=== PATIENT | female | born 1995 | race Caucasian/White ===

== ENCOUNTER → 2017-08-31 12:58 | Outpatient (CLI) | payer OTHER, SELFPAY ==
[2017-08-31 17:34] LABS: Chlamydia Trachomatis by PCR Negative (Negative); Neisserai gonorrhoeae by PCR Negative (Negative); Probe Check PASS; Sample Adequacy Control PASS; Specimen Processing Control PASS
[2017-09-08 10:48] LABS: HPV Reflexed? NOT INDICATED
== END ==
PROVIDERS: Family Provider Pediatrics; PCP Pediatrics; Visit Provider Obstetrics & Gynecology
DX: Z12.4 Encounter for screening for malignant neoplasm of cervix (principal); Z11.3 Encounter for screening for infections with a predominantly sexual mode of transmission
CPT/HCPCS: 87491; 87591; 88175; G0145

== ENCOUNTER → 2017-10-19 11:20 | Outpatient (CLI) | payer SELFPAY ==
[2017-10-19 12:08] LABS: Absolute Neutrophil Count 5.4 X10^3/uL (2.0-7.7); Basophil# 0.01 X10^3/uL; Basophil% 0.1 % (0-1); Eosinophil# 0.14 X10^3/uL; Eosinophils% 1.6 % (0-5); Hematocrit 36.2 % (37-47); Hemoglobin 12.3 g/dl (12.0-15.0); Lymphocyte % 31.5 % (19-41); Mean Corpuscular Volume 88.3 fL (81-99); Mean Platelet Vol. 10.1 fl (6.2-12.0); Monocyte# 0.58 X10^3/uL; Monocyte% 6.5 % (0-10); Neutrophil # 5.35 X10^3/uL (2.7-7.7); Neutrophil % 60.3 % (47-70); Platelet Count 212 K/mm3 (150-450); RBC Distribution Width CV 13.5 % (11.6-14.6); RBC Distribution Width SD 43.6 fl (35.1-43.9); White Blood Count 8.9 K/mm3 (4.4-11.0)
[2017-10-19 12:10] LABS: POSITIVE COUNT NO; POSITIVE DIFFERENTIAL NO; POSITIVE MORPHOLOGY NO
[2017-10-19 12:30] LABS: Color, Urine Yellow (Yellow); Glucose, Dipstick Normal (Normal); Ketone-Dipstick Negative (Negative); Leukocyte Esterase-Dipstick 500 /ul (Negative); Nitrite-Dipstick Negative (Negative); Occult Blood-Urine Negative /ul (Negative); Protein-Dipstick Negative (Negative); Urine Bilirubin Dipstick Negative (Negative); Urine Clarity Sl. Cloudy (Clear); Urine Urobilinogen Normal (Normal)
[2017-10-19 13:20] LABS: HIV - WCH Non-Reactive (Nonreactive); Rubella IgG 19.8 IU/mL
[2017-10-20 08:12] LABS: HEPATITIS B SURFACE AG Negative (Negative); Hep C Antibodies 0.1 s/co ratio (0.0-0.9)
[2017-10-21 02:41] LABS: Prenatal RPR NONREACTIVE (NONREACTIVE)
== END ==
PROVIDERS: Visit Provider Obstetrics & Gynecology
DX: Z34.82 Encounter for supervision of other normal pregnancy, second trimester (principal)
CPT/HCPCS: 36415; 81002; 84443; 85025; 86703; 86762; 86803; 87340

== ENCOUNTER → 2018-01-24 09:29 | Outpatient (CLI) | payer SELFPAY ==
[2018-01-24 11:05] LABS: Hematocrit 34.2 % (37-47); Hemoglobin 11.6 g/dl (12.0-15.0); Mean Corp Hgb Conc 33.9 g/gl (32-36); Mean Corpuscular Hgb 31.4 pg (27.0-32.0); Mean Corpuscular Volume 92.4 fL (81-99); Mean Platelet Vol. 10.1 fl (6.2-12.0); Platelet Count 204 K/mm3 (150-450); RBC Distribution Width CV 13.8 % (11.6-14.6); RBC Distribution Width SD 46.1 fl (35.1-43.9); White Blood Count 11.3 K/mm3 (4.4-11.0)
[2018-01-24 11:07] LABS: Scan Indicated on CBC? Y/N NO
[2018-01-24 11:14] LABS: Glucose Challenge Gest 1H 50g 117 mg/dL (70-140)
== END ==
PROVIDERS: Visit Provider Obstetrics & Gynecology
DX: Z34.82 Encounter for supervision of other normal pregnancy, second trimester (principal)
CPT/HCPCS: 82950; 85027

== ENCOUNTER → 2018-03-21 16:03 | Outpatient (CLI) | payer OTHER, SELFPAY ==
[2014-10-28 12:46] VITALS: BMI 27.8
--- OUTSIDE RECORDS SUMMARY | 2018-05-07 23:21 | XMS RPT_ITS ---
:1995 Author Organization OHIP Support Name Relationship Address Phone ROSEY DEBORAH Unavailable [address] + [place] [address] UE Unavailable Unavailable Unavailable ALISON KAUR Unavailable [address] + [place] [address] DILLSBOROSARANE Unavailable [address] + [place] [address] UE Unavailable Unavailable Unavailable ALISON KAUR Unavailable [address] + [place] [address] DILLSBORO DEBORAH Unavailable [address] + [place] [address] UE Unavailable Unavailable Unavailable ALISON KAUR Unavailable [address] + [place] [address] [facility] Unavailable [address] + [place] [address] HERNANDO CURRIE Unavailable [address] + [place] [address] DILLSBORODEBORAH Unavailable [address] + [place] [address] [facility] Unavailable [address] + [place] [address] HERNANDO CURRIE Unavailable [address] + [place] [address] DILLSBORO DEBORAH Unavailable [address] + [place] [address] [facility] Unavailable . +. ., . . HERNANDO CURRIE Unavailable [address] + [place] [address] DILLSBORODEBORAH Unavailable [address] + [place] [address] Care Team Providers Name Role Phone Echo Garcia Attending Unavailable Radha, Echo Admitting Unavailable Ramonkos, Echo Attending Unavailable Radha, Echo Referring Unavailable Ramonkos, Echo Attending Unavailable Mana Santizo Primary Care Unavailable Benekos, Echo Admitting Unavailable Benekos, Echo Attending Unavailable Primay Care Physicia, No Primary Care Unavailable Ignacios, Echo Attending Unavailable Ignacios, Echo Attending Unavailable PROBLEMS PROBLEMS DATE TYPE CONDITION / CODE ATTENDING STATUS SOURCE 03/22/2018 Unknown Z36.85 - Encounter Echo Garcia Active [place] [facility] screening for Hospital Streptococcus B / Repository Z36.85(ICD-10) 01/24/2018 Unknown Z34.82 - Encounter Echo Garcia Active [place] for supervision of Community other normal Hospital , second Repository trimester / Z34.82(ICD-10) 08/31/2017 Unknown Z12.4 - Encounter Echo Garcia Active [place] for screening for Community malignant neoplasm Hospital of cervix / Repository Z12.4(ICD-10) 08/31/2017 Unknown Z11.3 - Encounter Echo Garcia Active [place] for screening for Community infections with a Hospital predominantly Repository sexual mode of transmission / Z11.3(ICD-10) PROCEDURES PROCEDURES No Procedure Records FoundRESULTS RESULTS OPERATIVE REPORT Observed: 04/24/2018 Status: F Source: PALMER 2:49 PM [facility] REPOSITORY [facility] Medical Records Department [address] [place] [address] Operative Report 04/24/18 1444 MR#: [id number] Acct: [id number] Name: FANY KAUR Mckenzie Rep #: [id number] : 1995 22 From: Echo Garcia MD PCP: Status: ADM IN Location: [id number] Vaginal Delivery Maternal Presentation: Spontaneous Rupture of Membranes 40 4/7 wk EGA presents with SROM Amniotic Membrane Rupture Type: Spontaneous at home Amniotic Fluid Description: Clear Final ALISSON: 04/19/18 Gestational age: 40 Weeks and 5 Days Date of Procedure: 04/24/18 Pre-Operative Diagnosis: 40 4/7 wk SROM Post-Operative Diagnosis: 40 4/7 wk SROM Surgery/ Procedure Performed: Spontaneous Vaginal Delivery Type of Anesthesia: None - nitrous used. Description of Procedure: of a rodriges viable male over intact perineum Head delivered LUKAS. Nuchal cord x one reduced at delivery Shoulders delivered easily. Infant to maternal abdomen after OP and nares bulb suctioned and stimulated. Cord clamped x two and cut. PP exam: 2nd deg perineal and posterior vaginal laceration repaired under 1% lidocaine local to hemostatic and intact Placenta delivered by spont expulsion and expression. 3V normal appearing, intact with trailing membranes. EBL 350 cc Pt and tolerated delivery well To recovery, stable condition Ray Ghazala counts correct x two. Presentation: Vertex, LUKAS Placental Delivery Description: Spontaneous, Expressed Placenta Disposition: [facility] Cord Vessel Description: 3 Vessels Cord Entanglement: Around neck x 1, loose Estimated Blood Loss: 350 Infant A gender: Male (1 minute): 9 (5 minute): 9 Episiotomy Description: None Laceration: Midline, Perineal Extension/lac, Vaginal Extension/lac, 2nd degree Medications given after delivery: IV Pitocin Complications: None 04/24/18 1449 <Electronically signed by Echo Garcia MD> Date Echo Garcia MD CC: Echo Garcia MD Signed DISCHARGE INSTRUCTION Observed: 04/24/2018 Status: F Source: FLOVILLA 2:43 PM [facility] REPOSITORY [facility] Medical Records Department [address] [place] [address] Instructions for Home/Discharge Instructions 04/24/18 1442 MR#: [id number] Acct: [id number] Name: FANY KAUR Rep #: [id number] : 1995 22 From: Echo Garcia MD PCP: Status: ADM IN Discharge Diet: No Restrictions Discharge Activity: May Shower, May Take a Tub Bath May resume sexual activity in: 4-6 weeks Additional Activity Instructions:: Nothing in the vagina for 4-6 weeks. You may return to work/school in 6 weeks. Additional Instructions: If you experience any of the following, contact your healthcare provider. * Bleeding that soaks a pad every hour for 2 hours * Fever 100.4 or higher * Unrelieved abdominal pain * Problems urinating (including inability to urinate or burning while urinating). * Visual changes * Severe headache * Flu-like symptoms * Pain or redness in one of both of your breasts * Pain, warmth, tenderness or swelling in your legs, especially the calf area * Frequent nausea and vomiting * Symptoms of depression or anxiety If you experience any of the following, call 911 or go to the nearest Emergency Room. * Chest pain * Problems breathing * Seizure activity * Partial or complete paralysis of a body part, slurred speech, weakness or drooping of the face, or a sudden inability to walk or hold your balance Allergies/Adverse Reactions: Allergies No Known Allergies Allergy (Verified 04/23/18 22:49) Medications to take at Discharge Vits [Prenatabs FA] 1 tablet PO DAILY 04/23/18 Please Follow Up With: Echo Garcia MD - [phone] When: Call to make an appointment with your doctor in 6 weeks. Test Results: Test results from this visit will be discussed in further detail at your follow-up appointment, if applicable. Proposed Discharge Date: 04/26/18 04/24/18 1443 <Electronically signed by Echo Garcia MD> Date Echo Garcia MD CC: Signed CBC-COMPLETE BLOOD CNT Collected: 04/23/2018 Status: F Source: PALMER NO DIFF 11:35 PM [facility] REPOSITORY TYPE CODE TESTS RESULT OUT OF RANGE REFERENCE UNITS LAB L100.1000 4.4-11.0 K/mm3 Normal WBC 11.0 LAB L100.1200 4.2-5.4 M/mm3 Low RBC 3.86 LAB L100.1300 12.0-15.0 g/dl Low HGB 11.1 LAB L100.1400 37-47 % Low HCT 33.9 LAB L100.1500 81-99 fL Normal MCV 87.8 LAB L100.1600 27.0-32.0 pg Normal MCH 28.8 LAB L100.1700 32-36 g/gl Normal MCHC 32.7 LAB L100.1810 11.6-14.6 % Normal RDW CV 14.1 LAB L100.1820 35.1-43.9 fl Normal RDW SD 43.5 LAB L100.1900 150-450 K/mm3 Normal PLT 201 LAB L100.2000 6.2-12.0 fl Normal MPV 10.6 Performed By: #### L100.0500 #### [facility] [address] [place], [address] TYPE AND SCREEN Collected: 04/23/2018 Status: F Source: PALMER 11:35 PM [facility] REPOSITORY Order Comment: Reason for Type AND Screen/Red Cells: TYPE CODE TESTS RESULT OUT OF RANGE REFERENCE UNITS LAB B10.0800 A Normal BLOOD TYPE GEL POSITIVE LAB B100.4000 Normal Antibody NEGATIVE Screen Performed By: #### B101.7450 #### [facility] [address] [place], [address] (ROM) RUPTURE OF Collected: 04/23/2018 Status: F Source: PALMER MEMBRANES 10:23 PM [facility] REPOSITORY TYPE CODE TESTS RESULT OUT OF REFERENCE UNITS RANGE LAB L205.1310 Negative High ROM POSITIVE Result Comment: Amniotic fluid present indicates rupture of Membranes. [facility] 04/23[facility]18 2309 Alyson Pratt. REPORT READ BACK BY SAME . Performed By: #### L205.1000 #### [facility] [address] [place], [address] Observed: 03/21/2018 Status: F Source: PALMER CULTURE, GROUP B 2:45 PM [facility] REPOSITORY Comments: VAGINAL/RECTAL GRZEGORZ Culture Group B Beta Streptococcus is not isolated. Performed By: #### M100.1800 #### [facility] [address] [place], [address] CBC-COMPLETE BLOOD CNT Collected: 01/24/2018 Status: F Source: PALMER NO DIFF 8:45 AM [facility] REPOSITORY TYPE CODE TESTS RESULT OUT OF RANGE REFERENCE UNITS LAB L100.1000 4.4-11.0 K/mm3 High WBC 11.3 LAB L100.1200 4.2-5.4 M/mm3 Low RBC 3.70 LAB L100.1300 12.0-15.0 g/dl Low HGB 11.6 LAB L100.1400 37-47 % Low HCT 34.2 LAB L100.1500 81-99 fL Normal MCV 92.4 LAB L100.1600 27.0-32.0 pg Normal MCH 31.4 LAB L100.1700 32-36 g/gl Normal MCHC 33.9 LAB L100.1810 11.6-14.6 % Normal RDW CV 13.8 LAB L100.1820 35.1-43.9 fl High RDW SD 46.1 LAB L100.1900 150-450 K/mm3 Normal PLT 204 LAB L100.2000 6.2-12.0 fl Normal MPV 10.1 Performed By: #### L100.0500 #### [facility] [address] [place], [address] GLUCOSE CHALLENGE GEST Collected: 01/24/2018 Status: F Source: PALMER 1H 50G 8:45 AM [facility] REPOSITORY TYPE CODE TESTS RESULT OUT OF RANGE REFERENCE UNITS LAB L501.0250 70-140 mg/dL Normal GLU GEST 117 50g 1H Performed By: #### L501.0250 #### [facility] [address] [place], [address] CBC W/DIFF, AUTOMATED Collected: 10/19/2017 Status: F Source: PALMER 11:24 AM [facility] REPOSITORY TYPE CODE TESTS RESULT OUT OF RANGE REFERENCE UNITS LAB L100.1000 4.4-11.0 K/mm3 Normal WBC 8.9 LAB L100.1200 4.2-5.4 M/mm3 Low RBC 4.10 LAB L100.1300 12.0-15.0 g/dl Normal HGB 12.3 LAB L100.1400 37-47 % Low HCT 36.2 LAB L100.1500 81-99 fL Normal MCV 88.3 LAB L100.1600 27.0-32.0 pg Normal MCH 30.0 LAB L100.1700 32-36 g/gl Normal MCHC 34.0 LAB L100.1810 11.6-14.6 % Normal RDW CV 13.5 LAB L100.1820 35.1-43.9 fl Normal RDW SD 43.6 LAB L100.1900 150-450 K/mm3 Normal PLT 212 LAB L100.2000 6.2-12.0 fl Normal MPV 10.1 LAB L100.2100 47-70 % Normal NEUT% 60.3 LAB L100.2200 19-41 % Normal LY% 31.5 LAB L100.2300 0-10 % Normal MONO% 6.5 LAB L100.2400 0-5 % Normal EO% 1.6 LAB L100.2500 0-1 % Normal BASO% 0.1 LAB L100.2550 0.0-0.9 % Normal IM GRAN % 0.000 Result Comment: IG% - Immature Granulocytes (promyelocytes, myelocytes and metamyelocytes) > 1% indicates that a LEFT SHIFT is Present. LAB L100.2620 2.0-7.7 X10 3/uL Normal Absolute Neut 5.4 LAB L100.2720 0.83-4.51 X10 3/ul Normal Absolute Lymph 2.80 Performed By: #### L100.0100 #### [facility] [address] [place], [address] URINALYSIS, ROUTINE Collected: 10/19/2017 Status: F Source: FLOVILLA (DIPSTICK) 11:24 AM [facility] REPOSITORY Order Comment: How was Urine Obtained? Urine, Random TYPE CODE TESTS RESULT OUT OF RANGE REFERENCE UNITS LAB L400.3000 Yellow COLOR Normal Yellow LAB L400.3050 Clear Normal CLARITY Sl. Cloudy LAB L400.3200 Normal mg/dl Normal GLUCOSE, UR Normal LAB L400.3300 Negative mg/dL Normal BILIRUBIN URINE Negative LAB L400.3400 Negative mg/dl Normal KETONE UR Negative LAB L400.3465 1.002-1.030 Normal SP.GR. DIPSTX 1.010 LAB L400.3550 5.0 - 8.0 pH UR Normal 8.0 LAB L400.3600 Negative mg/dl PROT Normal DIPSTX Negative LAB L400.3700 Normal mg/dl Normal UROBILI Normal LAB L400.3750 Negative Normal NITRITE UR Negative LAB L400.3780 Negative /ul Normal OCCULT BLOOD-UR Negative LAB L400.3800 Negative /ul High LEUK ESTERASE 500 Performed By: #### L400.2010 #### [facility] [address] [place], [address] THYROID STIM HORMONE Collected: 10/19/2017 Status: F Source: PALMER (TSH) 11:24 AM [facility] REPOSITORY TYPE CODE TESTS RESULT OUT OF RANGE REFERENCE UNITS LAB L501.9520 0.358-3.74 uIU/mL Normal TSH 1.10 Performed By: #### L501.9520 #### [facility] [address] [place], [address] T AND S-NO Collected: 10/19/2017 Status: F Source: PALMER CHARGE W/PNP 11:24 AM [facility] REPOSITORY Order Comment: Reason for Type AND Screen/Red Cells: Surgery? N TYPE CODE TESTS RESULT OUT OF RANGE REFERENCE UNITS LAB B10.0800 A Normal BLOOD POSITIVE TYPE GEL LAB B100.4050 Normal Ab SCREEN NEGATIVE GEL Performed By: #### B100.7550 #### [facility] [place], [address] RUBELLA IGG Collected: 10/19/2017 Status: F Source: PALMER 11:24 AM [facility] REPOSITORY TYPE CODE TESTS RESULT OUT OF RANGE REFERENCE UNITS LAB L509.4000 IU/mL Normal Rubella IgG 19.8 Result Comment: Antibody results Interpretation of Immune Status < 5 IU/ml Presumed Non-immune 5 - < 10 IU/ml Equivocal > or = 10 IU/ml Presumed Immune Performed By: #### L509.4000, L3890.6005 #### [facility] [address] [place], [address] HIV - WCH Collected: 10/19/2017 Status: F Source: PALMER 11:24 AM [facility] REPOSITORY TYPE CODE TESTS RESULT OUT OF RANGE REFERENCE UNITS LAB L3890.6005 Nonreactive Normal HIV - WCH Non-Reactive Performed By: #### L509.4000, L3890.6005 #### [facility] [address] [place], [address] HEPATITIS B SURFACE Collected: 10/19/2017 Status: F Source: PALMER AG 11:24 AM [facility] REPOSITORY TYPE CODE TESTS RESULT OUT OF RANGE REFERENCE UNITS LAB L3100.0400 Negative Normal HB Negative SURF AG Result Comment: Performed at: [facility] Lab[address] [id number] Telephoner: Papito King PhD, Phone: [phone] Performed By: #### L3100.0390, L3100.0625 #### [facility] (refer to report for specific site) refer to report for address and phone number HEPATITIS C ANTIBODIES Collected: 10/19/2017 Status: F Source: PALMER 11:24 AM [facility] REPOSITORY TYPE CODE TESTS RESULT OUT OF RANGE REFERENCE UNITS LAB L3100.0650 0.0-0.9 s/co ratio Normal HEP C AB 0.1 Result Comment: Negative: < 0.8 Indeterminate: 0.8 - 0.9 Positive: > 0.9 The CDC recommends that a positive HCV antibody result be followed up with a HCV Nucleic Acid Amplification test (034094). Performed By: #### L3100.0390, L3100.0625 #### [facility] (refer to report for specific site) refer to report for address and phone number RPR Collected: 10/19/2017 Status: F Source: PALMER 11:24 AM [facility] REPOSITORY TYPE CODE TESTS RESULT OUT OF REFERENCE UNITS RANGE LAB L700.5100 NONREACTIVE Normal RPR NONREACTIVE Performed By: #### L700.5100 #### [facility] [address] [place], [place], [address] CT/NG WCH BY PCR Collected: 08/31/2017 Status: F Source: PALMER 11:45 AM [facility] REPOSITORY TYPE CODE TESTS RESULT OUT OF RANGE REFERENCE UNITS LAB L8200.2100 Negative Normal Chlam Negative Trac PCR LAB L8200.2200 Negative Normal NG by Negative PCR Performed By: #### L8200.2000 #### [facility] [address] [facility] [place], [place], [address] PAP I-G W/RFX HRHPV Collected: 08/31/2017 Status: F Source: PALMER 11:45 AM [facility] REPOSITORY Order Comment: CYTOLOGY INFORMATION: - CLINICAL INFORMATION: - DATE LMP/MENOPAUSE: 07/04/17 - COLLECTION VIAL: Thin Prep Vial - LABORER PIE BAKERY SOURCE: CERVICAL - COLLECTION TECHNIQUE: BRUSH/SPATULA Specimen Comment: [id number] Specimen Comment: No. of containers..01 ThinPrep Vial TYPE CODE TESTS RESULT OUT OF RANGE REFERENCE UNITS LAB L7400.0800 . Normal DIAGN Comment Result Comment: NEGATIVE FOR INTRAEPITHELIAL LESION AND MALIGNANCY. THIS SPECIMEN WAS RESCREENED PART OF OUR PACKER INSPECTOR PROGRAM. LAB L7400.0900 . Normal ADEQ Comment Result Comment: Satisfactory for evaluation. Endocervical and/or squamous metaplastic cells (endocervical component) are present. LAB L7400.1400 . Normal PERFORM Comment Result Comment: Nguyen Juan, Connie Cleaner (ASCP) LAB L7400.1500 . Normal QC Comment REV Result Comment: Tali Mosqueda, Supervisory Connie Cleaner (ASCP) LAB L7400.2575 . Normal TEST METHOD Comment Result Comment: This liquid based ThinPrep(R) pap test was screened with the use of an image guided system. LAB L7400.2600 . Normal . COMM LAB L7400.2700 . Normal PAPSMR Comment Result Comment: The Pap smear is a screening test designed to aid in the detection of premalignant and malignant conditions of the uterine cervix. It is not a diagnostic procedure and should not be used as the sole means of detecting cervical cancer. Both false-positive and false-negative reports do occur. LAB L7400.2800 . Normal HPV RFLX Comment Result Comment: The HPV DNA reflex criteria were not met with this specimen result therefore, no HPV testing was performed. Performed at: - [facility] [id number] Telephoner: Genevieve Tee MD, Phone: [phone] Performed By: #### L7400.0350 #### [facility] (refer to report for specific site) refer to report for address and phone number [facility] Observed: 07/07/2017 Status: COMPLETED Source: [facility] 12:00 AM [facility] [place] REPOSITORY [facility], [place] [address] July 07, 2017 RE: Fany Currie [address] [facility] [address] 1995 Dear Parent/Guardian of Fany, We have tried to contact you in regards to your child's Need for Routine Physical Our efforts to reach you have been unsuccessful. Please call [phone] to coordinate your child's plan of care. Thank you and we look forward to talking with you. Sincerely, [facility] ALLERGIES ALLERGIES DATE TYPE / CODE NAME / CODE REACTION SEVERITY SOURCE 04/23/2018 Drug No Known Unknown [place] [facility] Allergy/4160 Allergies/F00 Hospital 58361(SNOMED [id number](RXNOR Repository CT) M) ENCOUNTERS ENCOUNTERS ADMIT/DISCHARGE ACCOUNT ADMITTING ENCOUNTER LOCATION SOURCE NUMBER CLASS 04/23/2018/ [id number] Radha, Inpatient [place] 9 5 Preemption Encounter [facility] ing:WPRoom: Repository JY350Hoe: 1 04/10/2018 [id number] Radha Ambulatory [place] 1 [facility] ing:WP Repository 03/21/2018 [id number] Ambulatory [place] 6 [facility] ing:LABSPEC Repository 01/24/2018 [id number] Ambulatory [place] 4 [facility] ing:LABSPEC Repository 10/19/2017 [id number] Ambulatory [place] 1 [facility] ing:WOBLAB Repository 08/31/2017 [id number] Ambulatory [place] 3 [facility] ing:WOBLAB Repository PAYERS PAYERS ENCOUNTER GUARANTOR PAYER SUBSCRIBER SOURCE 04/23/2018 FANY W Primary Insurance:[facility] FANY W [place] [id number] PACKAGE PLANPolicy YODERDOB: [facility] PACO ELIAS, [id number] [address]Evh: [id number] Repository Date:2018-04-23 () 04/23/2018 Secondary NOT GIVENUNK [place] Insurance:SELF PAY [facility] Number: Effective Repository Date:2018-04-23 04/10/2018 FANY W Primary Insurance:[facility] FANY W [place] [id number] N PACKAGE PLANPolicy YODERDOB: [facility] [address] [place]: [id number] [id number] Repository [address]Kar: (330) Date:2017-10-072319 (HP) 04/10/2018 Secondary NOT GIVENUNK [place] Insurance:SELF PAY [facility] Number: Effective Repository Date:2017-10-07 03/21/2018 FANY W Primary FANY W [place] [id number] Insurance:[employer]ORATION YODERDOB: [facility] Number: [id number] [address]Fac: .Effective Repository Date:2018-03-21 (HP) 03/21/2018 Secondary NOT GIVENUNK [place] Insurance:SELF PAY [facility] Number: Effective Repository Date:2018-03-21 01/24/2018 FANY W Primary NOT GIVENUNK [place] [id number] Insurance:SELF PAY [facility] [address]Tnz: Number: Effective Repository Date:2018-01-24 (HP) 10/19/2017 FANY W Primary NOT GIVENUNK [place] [id number] [address] Insurance:SELF PAY [facility] [id number]: Number: Effective Repository Date:2017-10-19 (HP) 08/31/2017 FANY W Primary DEBORAH LYONS [place] [id number] [address] Insurance:[facility] Number: [facility] [id number]: .Effective Repository Date:2017-08-31 (HP) 08/31/2017 Secondary NOT GIVENUNK [place] Insurance:SELF PAY [facility] Number: Effective Repository Date:2017-08-31
== END ==
PROVIDERS: Visit Provider Obstetrics & Gynecology
DX: Z36.85 Encounter for antenatal screening for Streptococcus B (principal)
CPT/HCPCS: 87081

== ENCOUNTER 2018-04-23 23:08 | Inpatient (IN) | payer SELFPAY ==
[2018-04-23 22:48] VITALS: BMI 33.0
[2018-04-23 23:09] LABS: ROM Internal Control Test YES-OK TO RESULT pt. (Internal QC); ROM Patient Test POSITIVE (Negative)
[2018-04-23] MEDS: 0.9% Saline Lock 10 ML Syringe IV (23:35)
[2018-04-23 23:55] LABS: Hematocrit 33.9 % (37-47); Hemoglobin 11.1 g/dl (12.0-15.0); Mean Corp Hgb Conc 32.7 g/gl (32-36); Mean Corpuscular Hgb 28.8 pg (27.0-32.0); Mean Corpuscular Volume 87.8 fL (81-99); Mean Platelet Vol. 10.6 fl (6.2-12.0); Platelet Count 201 K/mm3 (150-450); RBC Distribution Width CV 14.1 % (11.6-14.6); RBC Distribution Width SD 43.5 fl (35.1-43.9); Red Blood Count 3.86 M/mm3 (4.2-5.4)
[2018-04-23 23:56] LABS: Scan Indicated on CBC? Y/N NO
[2018-04-24] MEDS: Oxytocin 30 units/NS 500 ml 30 UNITS/500 ML IV.SOLN IV (05:53)
[2018-04-24] MEDS: Lactated Ringers 1,000 ML 50 ML IV (05:53)
[2018-04-24] MEDS: 0.9% Saline Lock 10 ML Syringe IV (05:54)
--- NOTE | 2018-04-24 08:16 | PCM.PN.BLA ---
Progress Note 40 5/7 wk LABOR PROGRESS NOTE SROM last PM Feeling UCs. Plans to get up to shower next. has miranda active. On birthing ball at bedside now. Return to bed for exam. AVSS Pitocin at 4 mIU/min GEN: A and O CX: 4-5 / 90/ -2 IBOW. AROM clear mod amt. EFM 140-150s with avg variability. Accels. UCs q 2-5 mins A/P: 40 5/7 wk SROM. Early labor. Plans no epidural. EFM reassuring. To shower next per pt request. Continue labor. Watch progress, descent. pitocin prn.
[2018-04-24] MEDS: Nalbuphine 10 MG/ML Ampul IV (09:06)
--- NOTE | 2018-04-24 11:28 | PCM.PN.BLA ---
Progress Note LABOR PROGRESS NOTE Going natural AVSS pitocin at 6 mIU/min EFM 110-120s with intermittent tracing. Occasional variable to 90 BPM. Occasional decel to 90 lasting one min UCs q 2-5 mins 9 cm/100/-1 station with RN check just done A/P: 40 5/7 wk progress to 9 cm. Continue labor. Anticipate .
[2018-04-24] MEDS: Oxytocin 30 units/NS 500 ml 30 UNITS/500 ML IV.SOLN 334 UNITS IV (12:45)
[2018-04-24] MEDS: Oxytocin 30 units/NS 500 ml 30 UNITS/500 ML IV.SOLN 167 UNITS IV (13:15)
--- NOTE | 2018-04-24 14:42 | PCM.DCVAG ---
Discharge Diet: No Restrictions Discharge Activity: May Shower, May Take a Tub Bath May resume sexual activity in: 4-6 weeks Additional Activity Instructions:: Nothing in the vagina for 4-6 weeks. You may return to work/school in 6 weeks. Additional Instructions: If you experience any of the following, contact your healthcare provider. Bleeding that soaks a pad every hour for 2 hours Fever 100.4 or higher Unrelieved abdominal pain Problems urinating (including inability to urinate or burning while urinating). Visual changes Severe headache Flu-like symptoms Pain or redness in one of both of your breasts Pain, warmth, tenderness or swelling in your legs, especially the calf area Frequent nausea and vomiting Symptoms of depression or anxiety If you experience any of the following, call 911 or go to the nearest Emergency Room. Chest pain Problems breathing Seizure activity Partial or complete paralysis of a body part, slurred speech, weakness or drooping of the face, or a sudden inability to walk or hold your balance Allergies/Adverse Reactions: Allergies No Known Allergies Allergy (Verified 04/23/18 22:49) Medications to take at Discharge Vits [Prenatabs FA] 1 tablet PO DAILY 04/23/18 Please Follow Up With: Echo Garcia MD - [phone] When: Call to make an appointment with your doctor in 6 weeks. Test Results: Test results from this visit will be discussed in further detail at your follow-up appointment, if applicable. Proposed Discharge Date: 04/26/18
--- NOTE | 2018-04-24 14:43 | DCINST_ITS ---
Discharge Diet: No Restrictions Discharge Activity: May Shower, May Take a Tub Bath May resume sexual activity in: 4-6 weeks Additional Activity Instructions:: Nothing in the vagina for 4-6 weeks. You may return to work/school in 6 weeks. Additional Instructions: If you experience any of the following, contact your healthcare provider. * Bleeding that soaks a pad every hour for 2 hours * Fever 100.4 or higher * Unrelieved abdominal pain * Problems urinating (including inability to urinate or burning while urinating). * Visual changes * Severe headache * Flu-like symptoms * Pain or redness in one of both of your breasts * Pain, warmth, tenderness or swelling in your legs, especially the calf area * Frequent nausea and vomiting * Symptoms of depression or anxiety If you experience any of the following, call 911 or go to the nearest Emergency Room. * Chest pain * Problems breathing * Seizure activity * Partial or complete paralysis of a body part, slurred speech, weakness or drooping of the face, or a sudden inability to walk or hold your balance Allergies/Adverse Reactions: Allergies No Known Allergies Allergy (Verified 04/23/18 22:49) Medications to take at Discharge Vits [Prenatabs FA] 1 tablet PO DAILY 04/23/18 Please Follow Up With: Echo Garcia MD - [phone] When: Call to make an appointment with your doctor in 6 weeks. Test Results: Test results from this visit will be discussed in further detail at your follow- up appointment, if applicable. Proposed Discharge Date: 04/26/18
--- NOTE | 2018-04-24 14:44 | PCM.OB.VAG ---
Vaginal Delivery Maternal Presentation: Spontaneous Rupture of Membranes 40 4/7 wk EGA presents with SROM Amniotic Membrane Rupture Type: Spontaneous at home Amniotic Fluid Description: Clear Final ALISSON: 04/19/18 Gestational age: 40 Weeks and 5 Days Date of Procedure: 04/24/18 Pre-Operative Diagnosis: 40 4/7 wk SROM Post-Operative Diagnosis: 40 4/7 wk SROM Surgery/ Procedure Performed: Spontaneous Vaginal Delivery Type of Anesthesia: None - nitrous used. Description of Procedure: of a rodriges viable male over intact perineum Head delivered LUKAS. Nuchal cord x one reduced at delivery Shoulders delivered easily. to maternal abdomen after OP and nares bulb suctioned and stimulated. Cord clamped x two and cut. PP exam: 2nd deg perineal and posterior vaginal laceration repaired under 1% lidocaine local to hemostatic and intact Placenta delivered by spont expulsion and expression. 3V normal appearing, intact with trailing membranes. EBL 350 cc Pt and tolerated delivery well To recovery, stable condition Ray Ghazala counts correct x two. Presentation: Vertex, LUKAS Placental Delivery Description: Spontaneous, Expressed Placenta Disposition: [facility] Cord Vessel Description: 3 Vessels Cord Entanglement: Around neck x 1, loose Estimated Blood Loss: 350 A gender: Male (1 minute): 9 (5 minute): 9 Episiotomy Description: None Laceration: Midline, Perineal Extension/lac, Vaginal Extension/lac, 2nd degree Medications given after delivery: IV Pitocin Complications: None
[2018-04-24 16:14] VITALS: BP 130/70; PULSE 78; RESP 16; TEMP 36.6
[2018-04-24 20:09] VITALS: BP 120/81; PULSE 89; RESP 16; TEMP 37; O2SAT 97
[2018-04-25] VITALS (7 sets, daily range): BP systolic 110–125; BP diastolic 61–74; PULSE 74–88; RESP 16–18; TEMP 36.4–37.1; O2SAT 96–99
[2018-04-25] MEDS: Ibuprofen 600 MG Tablet PO ×2 (01:53→17:40)
--- NOTE | 2018-04-25 07:02 | PCM.PN.OB ---
Subjective: PPD#1 States feeling well. A little sore , but no pain meds today. Last took Motrin which was effective for pain. Plans circumcision today and would like to go home later today. Breast feeding well. no concerns voiced. Objective: Lying semirecumbent in bed , holding baby. - Physical Exam General: Alert, Oriented x3, Cooperative, No apparent distress HEENT: Atraumatic Neck: Supple Abdomen: Soft - Fundus firm NT inferior to umbilicus Psych/Mental Status: Normal Affect Vital Signs Temp Pulse Resp BP Pulse Ox 98.3 F 88 18 110/65 99 04/25/18 04:00 04/25/18 04:00 04/25/18 04:00 04/25/18 04:00 04/25/18 04:00 Oxygen Delivery Method Room Air Weight: 98.5 kg Body Mass Index (BMI) 33.0 Intake and Output for Last 24 Hours 04/23/18 04/24/18 04/25/18 23:59 23:59 23:59 Intake Total 550 / 550 Output Total 1200 / 1200 Balance -650 / -650 Medical Necessity - Tobacco Use Smoking Status: Never smoker Assessment/Plan PPD#1 Stable pp. Dischg home today per pt request, RTO in 6 wk for pp check. Reviewed normal healing, s/sx of PP depression. Plans to leave today if baby is released after circumcision
[2018-04-25] MEDS: Acetaminophen 500 MG Tablet 1000 MG PO (15:58)
== END 2018-04-25 18:10 | disposition home or self-care (01) | DRG 807 ==
LOC: WPOUT 23:12
PROVIDERS: Obstetrics & Gynecology; Admitting Provider Obstetrics & Gynecology; Referring Provider Obstetrics & Gynecology; Visit Provider Obstetrics & Gynecology
DX: O69.81X0 Labor and delivery complicated by cord around neck, without compression, not applicable or unspecified (principal); O70.1 Second degree perineal laceration during delivery; Z3A.40 40 weeks gestation of pregnancy; Z37.0 Single live birth
CPT/HCPCS: 59025; 59050; 84112; 85027; 86850; 86900; 99218; J7120; A4216; G0378

== ENCOUNTER → 2019-11-07 16:47 | Outpatient (CLI) | payer SELFPAY ==
[2019-11-07 17:43] LABS: Absolute Lymphocyte Count 2.59 X10^3/uL (0.83-4.51); Absolute Neutrophil Count 5.7 X10^3/uL (2.0-7.7); Basophil# 0.02 X10^3/uL; Basophil% 0.2 % (0-1); Eosinophil# 0.14 X10^3/uL; Eosinophils% 1.6 % (0-5); Hematocrit 37.8 % (37-47); Hemoglobin 12.5 g/dL (12.0-15.0); Lymphocyte # 2.59 X10^3/ul (4.0); Lymphocyte % 28.7 % (19-41); Mean Corp Hgb Conc 33.1 g/dL (32-36); Mean Corpuscular Hgb 30.7 pg (27.0-32.0); Mean Corpuscular Volume 92.9 fL (81-99); Mean Platelet Vol. 10.3 fl (6.2-12.0); Monocyte# 0.53 X10^3/uL; Monocyte% 5.9 % (0-10); NRBC Flagged by Analyzer 0 % (0-5); Neutrophil # 5.71 X10^3/uL (2.7-7.7); Neutrophil % 63.4 % (47-70); Platelet Count 223 K/mm3 (150-450); RBC Distribution Width CV 13.8 % (11.6-14.6); Red Blood Count 4.07 M/mm3 (4.2-5.4)
[2019-11-07 17:51] LABS: Color, Urine Yellow (Yellow); Glucose, Dipstick Normal (Normal); Ketone-Dipstick Negative (Negative); Leukocyte Esterase-Dipstick 500 /ul (Negative); Nitrite-Dipstick Negative (Negative); Occult Blood-Urine Negative /ul (Negative); Protein-Dipstick Negative (Negative); Specific Gravity, Urine 1.015 (1.002-1.030); Urine Bilirubin Dipstick Negative (Negative); Urine Clarity Clear (Clear); Urine Urobilinogen Normal (Normal); Urine pH 6.5 (5.0 - 8.0)
[2019-11-07 18:26] LABS: Amphetamine Urine VISTA NEGATIVE (<1000 ng/mL); Barbiturate Urine VISTA NEGATIVE (< 200 ng/mL); Benzodiazepine Urine VISTA NEGATIVE (< 200 ng/mL); Cocaine Urine VISTA NEGATIVE (< 300 ng/mL); Ecstacy Urine VISTA NEGATIVE (< 500 ng/mL); Methadone Urine VISTA NEGATIVE (< 300 ng/mL); PCP Urine VISTA NEGATIVE (< 25 ng/mL); THC Urine VISTA NEGATIVE (< 50 ng/mL); Thyroid Stim Hormone (TSH) 0.99 uIU/mL (0.358-3.74); Vista UDS pH Range 6
[2019-11-07 22:33] LABS: Chlamydia Trachomatis by PCR Negative (Negative); Neisserai gonorrhoeae by PCR Negative (Negative); Probe Check PASS; Sample Adequacy Control PASS; Specimen Processing Control PASS
[2019-11-08 02:01] LABS: Prenatal RPR NONREACTIVE (NONREACTIVE)
[2019-11-08 10:31] LABS: HIV - WCH Non-Reactive (Nonreactive); Hepatitis B Surface Antigen Non-Reactive (Nonreactive); Hepatitis C Antibody Non-Reactive (Nonreactive); Rubella IgG 14.3 IU/mL
== END ==
PROVIDERS: Visit Provider Obstetrics & Gynecology
DX: Z34.82 Encounter for supervision of other normal pregnancy, second trimester (principal); Z11.3 Encounter for screening for infections with a predominantly sexual mode of transmission
CPT/HCPCS: 36415; 80307; 81002; 84443; 85025; 86703; 86762; 86803; 87340; 87491; 87591

== ENCOUNTER → 2020-02-04 10:17 | Outpatient (CLI) | payer SELFPAY ==
[2020-02-04 11:16] LABS: Hematocrit 34.6 % (37-47); Hemoglobin 11.6 g/dL (12.0-15.0); Mean Corp Hgb Conc 33.5 g/dL (32-36); Mean Corpuscular Hgb 32.1 pg (27.0-32.0); Mean Corpuscular Volume 95.8 fL (81-99); Mean Platelet Vol. 10.2 fl (6.2-12.0); Platelet Count 222 K/mm3 (150-450); RBC Distribution Width CV 13.7 % (11.6-14.6); Red Blood Count 3.61 M/mm3 (4.2-5.4); White Blood Count 10.2 K/mm3 (4.4-11.0)
[2020-02-04 11:46] LABS: Glucose Challenge Gest 1H 50g 107 mg/dL (70-140)
== END ==
PROVIDERS: Visit Provider Student in an Organized Health Care Education/Training Program
DX: Z34.83 Encounter for supervision of other normal pregnancy, third trimester (principal)
CPT/HCPCS: 36415; 82950; 85027

== ENCOUNTER → 2020-03-31 15:57 | Outpatient (CLI) | payer SELFPAY | PROVIDERS: Visit Provider Obstetrics & Gynecology | DX: Z36.85 Encounter for antenatal screening for Streptococcus B (principal) | CPT/HCPCS: 87081 ==

== ENCOUNTER 2020-04-25 20:25 | Inpatient (IN) | payer SELFPAY ==
[2020-04-25 20:08] VITALS: BP 118/70; PULSE 81; TEMP 36.3; O2SAT 97
[2020-04-25] MEDS: 0.9% Saline Lock 10 ML Syringe IV (20:24)
[2020-04-25 20:36] LABS: Absolute Lymphocyte Count 3.12 X10^3/uL (0.83-4.51); Absolute Neutrophil Count 9.2 X10^3/uL (2.0-7.7); Basophil# 0.06 X10^3/uL; Basophil% 0.4 % (0-1); Eosinophil# 0.17 X10^3/uL; Eosinophils% 1.2 % (0-5); Hematocrit 36.7 % (37-47); Hemoglobin 12.5 g/dL (12.0-15.0); Lymphocyte # 3.12 X10^3/ul (4.0); Lymphocyte % 22.7 % (19-41); Mean Corp Hgb Conc 34.1 g/dL (32-36); Mean Corpuscular Volume 93.9 fL (81-99); Mean Platelet Vol. 9.9 fl (6.2-12.0); Monocyte# 1.03 X10^3/uL; Monocyte% 7.5 % (0-10); NRBC Flagged by Analyzer 0 % (0-5); Neutrophil # 9.23 X10^3/uL (2.7-7.7); Neutrophil % 67.1 % (47-70); Platelet Count 193 K/mm3 (150-450); RBC Distribution Width CV 13.6 % (11.6-14.6); RBC Distribution Width SD 46.1 fl (35.1-43.9); Red Blood Count 3.91 M/mm3 (4.2-5.4); White Blood Count 13.8 K/mm3 (4.4-11.0)
[2020-04-25 20:46] VITALS: BMI 30.9
[2020-04-25 21:10] VITALS: BP 120/56; PULSE 80; TEMP 36
[2020-04-25] MEDS: Oxytocin 30 units/NS 500 ml 30 UNITS/500 ML IV.SOLN 334 UNITS IV (22:56)
--- NOTE | 2020-04-25 23:03 | HP.PCM_ITS ---
History and Physical Date of Admission: 04/25/20 HPI 24 yo at 39/4w, ALISSON 04/28/20 by LMP, admitted for labor. Denies LOF, VB. +FM. Denies CAREY, vision changes, chest pain, dyspnea, nausea/emesi. 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 , Medications PNV Past Surgical History none Social History Tobacco use: Denies Alcohol use: Denies Illicit drug use: Denies Labs Blood type: A pos Rubella: Immune Hep B/C: neg HIV: neg RPR: noneractive GBS: neg 03/31 Allergies NKDA Review of Systems General: alert and oriented HEENT: _denies change of vision Heart/lungs: _denies CP, SOB GI: _denies nausea, vomiting, dysuria, diarrhea MSK: _denies calf pain, tenderness Physical Exam Vital Signs Temp Pulse BP Pulse Ox 04/25/20 23:05 184 H 114/79 04/25/20 21:10 96.8 F L 80 120/56 L 04/25/20 20:08 97.4 F L 81 118/70 97 General: a&o x3, NAD HEENT: normocephalic, atraumatic Cardio: no JVD Resp: no increased work in breathing Abdomen: soft, gravid, nontender Extremities: _minimal-moderate edema CE: 7 cm per RN FHT: 130/mod rochelle/+accel/no decel [place]: not tracing Labs Laboratory Results - last 24 hr 04/25/20 04/25/20 20:24 20:24 WBC 13.8 H RBC 3.91 L Hgb 12.5 Hct 36.7 L MCV 93.9 MCH 32.0 MCHC 34.1 RDW Std Deviation 46.1 H RDW Coeff of Rochelle 13.6 Plt Count 193 MPV 9.9 Immature Gran % (Auto) 1.100 H Neut % (Auto) 67.1 Lymph % (Auto) 22.7 [place] % (Auto) 7.5 Eos % (Auto) 1.2 Baso % (Auto) 0.4 Absolute Neuts (auto) 9.2 H Absolute Lymphs (auto) 3.12 Nucleated RBC % 0 Blood Type A POSITIVE Antibody Screen NEGATIVE Assessment & Plan 24 yo at 39/4w, ALISSON 04/28/20 by LMP, admitted for labor Admit to L&D - Routine labor orders - GBS neg - CEFM
[2020-04-25 23:05] VITALS: BP 114/79; PULSE 184; TEMP 36.1; O2SAT 100
--- NOTE | 2020-04-25 23:09 | PCM.OPRPT ---
Vaginal Delivery Maternal Presentation: Active Labor Amniotic Membrane Rupture Type: Artificial Amniotic Fluid Description: Clear Final ALISSON: 04/28/20 Final ALISSON Source: LMP Gestational age: 39 Weeks and 4 Days Date of Procedure: 04/25/20 Pre-Operative Diagnosis: Tabor intrauterine , labor Post-Operative Diagnosis: Tabor intrauterine , labor Surgery/ Procedure Performed: Spontaneous Vaginal Delivery Type of Anesthesia: None Description of Procedure: Spontaneous vaginal delivery of viable female. No nuchal cord. Baby to mom. Cord clamped and cut. Second degree perineal laceration repaired in usual fashion, hemostatic after lidocaine injection. Spontaneous delivery of placenta. EBL 350cc. (1 minute): 9 (5 minute): 9
--- NOTE | 2020-04-25 23:11 | DCINST_ITS ---
Discharge Activity: Return to Normal Activity, May Drive, May Shower May resume sexual activity in: 6 weeks Weight Bearing Status: Weight bearing as tolerated Call your doctor if you observe: Fever of 101 or Higher, Inability to urinate, Inability to have a bowel movement, Using more than one pad per hour, Shortness of breath, Chest pain Additional Instructions: If you experience any of the following, contact your healthcare provider. * Bleeding that soaks a pad every hour for 2 hours * Fever 100.4 or higher * Unrelieved incision or abdominal pain * Swelling, redness, discharge or bleeding from your incision or episiotomy site * Your incision begins to separate * Problems urinating (including inability to urinate or burning while urinating). * Visual changes * Severe headache * Flu-like symptoms * Pain or redness in one of both of your breasts * Pain, warmth, tenderness or swelling in your legs, especially the calf area * Frequent nausea and vomiting * Symptoms of depression or anxiety If you experience any of the following, call 911 or go to the nearest Emergency Room. * Chest pain * Problems breathing * Seizure activity * Partial or complete paralysis of a body part, slurred speech, weakness or drooping of the face, or a sudden inability to walk or hold your balance Allergies/Adverse Reactions: Allergies No Known Allergies Allergy (Verified 04/25/20 20:47) Medications to take at Discharge Vits [Prenatabs FA] 1 tablet PO DAILY 04/23/18 [place]-3/Dha/Epa/Fish Oil [Fish Oil 1,400 mg Softgel] 1 ea PO DAILY 04/25/20 Please Follow Up With: Skylar Guerrier DO When: 2 week telehealth visit, 6 week visit Test Results: Test results from this visit will be discussed in further detail at your follow- up appointment, if applicable.
--- NOTE | 2020-04-25 23:11 | PCM.DCVAG ---
Discharge Activity: Return to Normal Activity, May Drive, May Shower May resume sexual activity in: 6 weeks Weight Bearing Status: Weight bearing as tolerated Call your doctor if you observe: Fever of 101 or Higher, Inability to urinate, Inability to have a bowel movement, Using more than one pad per hour, Shortness of breath, Chest pain Additional Instructions: If you experience any of the following, contact your healthcare provider. Bleeding that soaks a pad every hour for 2 hours Fever 100.4 or higher Unrelieved incision or abdominal pain Swelling, redness, discharge or bleeding from your incision or episiotomy site Your incision begins to separate Problems urinating (including inability to urinate or burning while urinating). Visual changes Severe headache Flu-like symptoms Pain or redness in one of both of your breasts Pain, warmth, tenderness or swelling in your legs, especially the calf area Frequent nausea and vomiting Symptoms of depression or anxiety If you experience any of the following, call 911 or go to the nearest Emergency Room. Chest pain Problems breathing Seizure activity Partial or complete paralysis of a body part, slurred speech, weakness or drooping of the face, or a sudden inability to walk or hold your balance Allergies/Adverse Reactions: Allergies No Known Allergies Allergy (Verified 04/25/20 20:47) Medications to take at Discharge Vits [Prenatabs FA] 1 tablet PO DAILY 04/23/18 [place]-3/Dha/Epa/Fish Oil [Fish Oil 1,400 mg Softgel] 1 ea PO DAILY 04/25/20 Please Follow Up With: Skylar Guerrier DO When: 2 week telehealth visit, 6 week visit Test Results: Test results from this visit will be discussed in further detail at your follow-up appointment, if applicable.
[2020-04-25 23:20] VITALS: BP 142/75; PULSE 65; TEMP 36.6
[2020-04-25 23:35] VITALS: BP 136/55; PULSE 73; TEMP 36.4
[2020-04-25 23:50] VITALS: BP 123/60; PULSE 78; TEMP 36.6
[2020-04-26] VITALS (11 sets, daily range): BP systolic 117–137; BP diastolic 57–77; PULSE 56–82; RESP 14–18; TEMP 36.3–36.8; O2SAT 98
[2020-04-26] MEDS: Acetaminophen 500 MG Tablet 1000 MG PO ×3 (01:04→19:20)
--- NOTE | 2020-04-26 10:59 | PN.OBGYN_ITS ---
Subjective: PPD#1 Feeling well. Bottom is sore. Lochia minimal. going well. - Physical Exam Vitals/I&O's: Vital Signs Temp Pulse Resp BP Pulse Ox 97.9 F 56 L 18 123/64 H 100 04/26/20 08:41 04/26/20 08:41 04/26/20 08:41 04/26/20 08:41 04/25/20 23:05 Oxygen Delivery Method Room Air Weight: 92.261 kg Body Mass Index (BMI) 30.9 Intake and Output for Last 24 Hours 04/24/20 04/25/20 04/26/20 23:59 23:59 23:59 Intake Total 500 / 500 Output Total 400 / 400 Balance 100 / 100 General: Alert, Oriented x3, No apparent distress HEENT: Atraumatic, Normocephalic Neck: Supple Lungs: Normal air movement Cardiovascular: Regular rate Abdomen: Soft, Non Tender - uterus 2 cm below umbilicus Extremities: No edema Neurological: Cranial nerves II-XII grossly intact Psych/Mental Status: Normal Affect Laboratory Results 04/25/20 20:24: WBC 13.8 H, RBC 3.91 L, Hgb 12.5, Hct 36.7 L, MCV 93.9, MCH 32.0, MCHC 34.1, RDW Std Deviation 46.1 H, RDW Coeff of [place]helle 13.6, Plt Count 193, MPV 9.9, Immature Gran % (Auto) 1.100 H, Neut % (Auto) 67.1, Lymph % (Auto) 22.7, [place] % (Auto) 7.5, Eos % (Auto) 1.2, Baso % (Auto) 0.4, Absolute Neuts (auto) 9.2 H, Absolute Lymphs (auto) 3.12, Nucleated RBC % 0 04/25/20 20:24: Blood Type A POSITIVE, Antibody Screen NEGATIVE Current Medications Acetaminophen (Acetaminophen 500 Mg Tablet) 1,000 mg PO Q8H PRN PRN PRN Reason: Pain Score 1-10 Last Admin: 04/26/20 09:13 Dose: 1,000 mg Documented by: Bisacodyl (Bisacodyl 10 Mg Suppository) 10 mg RECTAL UD PRN PRN Reason: If no BM Dibucaine (Dibucaine 30 Gm Tube) 1 applic TOPICAL TID PRN PRN; Protocol PRN Reason: Discomfort Hydrocortisone (Hydrocortisone 2.5% Crm) 1 applic TOPICAL TID PRN PRN; Protocol PRN Reason: Discomfort Methylergonovine Maleate (Methylergonovine 0.2 Mg/Ml Ampul) 0.2 mg IM X1 PRN PRN Reason: Excess bleeding/uterine atony Ondansetron HCl (Ondansetron 4 Mg/2 Ml Vial) 4 mg IV Q4H PRN PRN PRN Reason: Nausea Senna/Docusate Sodium (Senna/Docusate Sodium 1 Tablet) 1 - 2 tablet PO DAILY PRN PRN PRN Reason: Constipation Simethicone (Simethicone 80 Mg Tablet) 80 mg PO PCHS PRN PRN Reason: Indigestion/Stomach pain Sodium Chloride (0.9% Saline Lock 10 Ml Syringe) 5 - 15 ml IV UD PRN PRN Reason: SALINE FLUSH Medical Necessity - Tobacco Use Smoking Status: Never smoker Assessment/Plan 24 yo PPD#1 s/p . Breast feeding. Pain controlled. Home tomorrow.
[2020-04-27 03:27] VITALS: BP 121/63; PULSE 67; RESP 16; TEMP 36.3
[2020-04-27] MEDS: Acetaminophen 500 MG Tablet 1000 MG PO (03:37)
--- NOTE | 2020-04-27 06:54 | PCM.PN.OB ---
Subjective: PPD#2 Feeling well. Lochia minmal. - Physical Exam Vitals/I&O's: Vital Signs Temp Pulse Resp BP Pulse Ox 97.3 F L 67 16 121/63 H 98 04/27/20 03:27 04/27/20 03:27 04/27/20 03:27 04/27/20 03:27 04/26/20 16:00 Oxygen Delivery Method Room Air Weight: 92.261 kg Body Mass Index (BMI) 30.9 Intake and Output for Last 24 Hours 04/25/20 04/26/20 04/27/20 23:59 23:59 23:59 Intake Total 500 / 500 Output Total 400 / 400 Balance 100 / 100 General: Alert, Oriented x3, No apparent distress HEENT: Atraumatic, Normocephalic Neck: Supple Lungs: Normal air movement Cardiovascular: Regular rate Abdomen: Soft - uterus firm, 2 cm below umbilicus Extremities: No edema Neurological: Cranial nerves II-XII grossly intact Psych/Mental Status: Normal Affect Current Medications Acetaminophen (Acetaminophen 500 Mg Tablet) 1,000 mg PO Q8H PRN PRN PRN Reason: Pain Score 1-10 Last Admin: 04/27/20 03:37 Dose: 1,000 mg Documented by: Bisacodyl (Bisacodyl 10 Mg Suppository) 10 mg RECTAL UD PRN PRN Reason: If no BM Dibucaine (Dibucaine 30 Gm Tube) 1 applic TOPICAL TID PRN PRN; Protocol PRN Reason: Discomfort Hydrocortisone (Hydrocortisone 2.5% Crm) 1 applic TOPICAL TID PRN PRN; Protocol PRN Reason: Discomfort Methylergonovine Maleate (Methylergonovine 0.2 Mg/Ml Ampul) 0.2 mg IM X1 PRN PRN Reason: Excess bleeding/uterine atony Ondansetron HCl (Ondansetron 4 Mg/2 Ml Vial) 4 mg IV Q4H PRN PRN PRN Reason: Nausea Senna/Docusate Sodium (Senna/Docusate Sodium 1 Tablet) 1 - 2 tablet PO DAILY PRN PRN PRN Reason: Constipation Simethicone (Simethicone 80 Mg Tablet) 80 mg PO PCHS PRN PRN Reason: Indigestion/Stomach pain Sodium Chloride (0.9% Saline Lock 10 Ml Syringe) 5 - 15 ml IV UD PRN PRN Reason: SALINE FLUSH Medical Necessity - Tobacco Use Smoking Status: Never smoker Assessment/Plan PPD#2 s/p . Breast feeding. Home today. F/u 2w telehealth, 6w PP.
[2020-04-27 08:00] VITALS: BP 128/68; PULSE 62; RESP 16; TEMP 36.1; O2SAT 96
== END 2020-04-27 09:35 | disposition home or self-care (01) | DRG 807 ==
LOC: WPOUT 20:27 → WP 20:27
PROVIDERS: Admitting Provider Student in an Organized Health Care Education/Training Program; Visit Provider Student in an Organized Health Care Education/Training Program
DX: O70.1 Second degree perineal laceration during delivery (principal); Z37.0 Single live birth; Z3A.39 39 weeks gestation of pregnancy
CPT/HCPCS: 59025; 59050; 85025; 86850; 86900; 86901; 99218; A4216; G0378

== ENCOUNTER → 2021-01-26 | Outpatient (CLI) | payer SELFPAY ==
[2021-01-30 13:36] LABS: HPV Reflexed? NOT INDICATED
== END | disposition home or self-care (01) ==
LOC: LABSPEC 15:14
PROVIDERS: Visit Provider Student in an Organized Health Care Education/Training Program
DX: Z12.4 Encounter for screening for malignant neoplasm of cervix (principal)
CPT/HCPCS: 88175; G0145

== ENCOUNTER 2021-07-10 08:49 | Outpatient (CLI) | payer SELFPAY ==
[2021-07-10 09:40] LABS: Hematocrit 35.8 % (37-47); Hemoglobin 12.4 g/dL (12.0-15.0); Mean Corp Hgb Conc 34.6 g/dL (32-36); Mean Corpuscular Hgb 32.1 pg (27.0-32.0); Mean Corpuscular Volume 92.7 fL (81-99); Mean Platelet Vol. 10.4 fl (6.2-12.0); Platelet Count 182 K/mm3 (150-450); RBC Distribution Width CV 14.6 % (11.6-14.6); RBC Distribution Width SD 49.9 fl (35.1-43.9); Red Blood Count 3.86 M/mm3 (4.2-5.4)
[2021-07-10 09:51] LABS: Glucose Challenge Gest 1H 50g 108 mg/dL (70-140)
== END 2021-07-10 23:59 | disposition home or self-care (01) ==
LOC: WOBLAB 08:50
PROVIDERS: Visit Provider Student in an Organized Health Care Education/Training Program
DX: Z34.83 Encounter for supervision of other normal pregnancy, third trimester (principal)
CPT/HCPCS: 36415; 82950; 85027

== ENCOUNTER → 2021-09-28 | Outpatient (CLI) | payer OTHER, SELFPAY | END | disposition home or self-care (01) | PROVIDERS: Visit Provider Student in an Organized Health Care Education/Training Program | DX: Z36.85 Encounter for antenatal screening for Streptococcus B (principal) | CPT/HCPCS: 87081 ==

== ENCOUNTER 2021-10-08 04:30 | Inpatient (IN) | payer SELFPAY ==
--- NOTE | 2021-10-07 17:25 | PCM.HP.BLA ---
History and Physical Date of Admission: 10/08/21 ACOG ANTEPARTUM RECORD - HISTORY AND PHYSICAL (10/07/2021) Name: FANY KAUR History of this : This is a 25 year old [id number] presents at 39 weeks 0 days gestation for primary for Breech Presentation. OB Physician: Skylar Vazquez [place]'s Physician: Rosa Isela ...................................................................... : 1995 Age: 25 Address: [address] [place] [address] Phone: H) [phone] Insurance Carrier: Emergency Contact: ALISON KAUR [phone] ...................................................................... Final ALISSON: 10/15/21 By Ultrasound: 16 weeks 5 days PARITY: (G-Total Pregnancies P-Fullterm,Premature,Induced AB,Spont AB, Ectopics, Multiple,Living) ALISSON CONFIRMATION: By LMP: 01/14/21 Initial Exam: 10/21/21 By First Ultrasound Exam: 10/15/21 Final ALISSON: 10/15/21 OB PROBLEM LIST: Azar's Palsy last 5 w of first preg, resolved 1-2 w pp EPDS = 9 at 20w Genetic and carrier screening declined H/O renal calculi Not planning an epidural ALLERGIES: No Known Drug Allergies MEDICATIONS: [place]-3 Fish Oil 910-1,400 mg capsule daily 28 mg-800 mcg tablet daily SOCIAL HISTORY: Smoking - Never Alcohol Use - denies drinking Diet - balanced Diet, caffeine < 2 drinks per day and water intake tries for one gallon. 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[employer] Teacher Spouse-Sig Other Phone No - [phone] Children Name(s) - Montez Wade 04/25/20 (CM) PRIOR DELIVERY HISTORY DEL DATE GEST LAB WT LB WT OZ TYPE ANES LABOR TX 14 Apr 29 42 12 6 15 Vag Local No May 01 39 5 8 8 Vag Local No ANTEPARTUM FLOW CHART VISIT RTC FU F F PA U U DATE WK MD WKS HT PN HR M SS BP ED WT PA GL D EF ST __ ____ ___ __ __ ___ __ __ __ ___ __ __ __ ___ __ 29 Sep 38 JMW 3 38 B + + 130/62 sl 216 ne ne 3+ 50 -2 20 Peter 37 CM 1 37 V + + 102/76 0 216 tr - 2 07 Peter 35 CM 1 36 V + + 126/62 0 215 ne ne August JMW 3 32 + + 114/62 tr 209 ne ne September 07 CM 4 30 + + 122/62 0 209 ne ne Aug 04 CM 4 25 + + 124/66 0 199 - - 02 Jun 29 SHM 4 21 V + + 100/62 sl 195 tr - Apr 26 CM 4 + 112/68 0 187 ne ne ANTEPARTUM NOTE(S): Oct 07 2021: u/s shows breech; offered version; wants Sep 28 2021: GBS and LARC Sep 15 2021: Compression helping/FM well. Aug 25 2021: Good FM Aug 11 2021: FM well Jul 10 2021: Jun 10 2021: comp u/s today May 05 2021: No complaints voiced at this time COMPREHENSIVE ANTEPARTUM NOTE(S): Oct 06 2021: H taken to OB. tkg Sep 28 2021: Fany is here for a pnv at 37/4. Good FM. No edema present. Occasional honey breaux, back pain and pelvic pressure. GBS today, consent signed. LARC reviewed and declined. Pt desires copper IUD. Pt would like cervix checked. MK Sep 28 2021: 37wks GBS today. CE 2cm. JM Sep 15 2021: 35/5w. Feeling better with compression hose. Will want paragard at 6w PP visit. F/u 1w. CM Aug 11 2021: 30/5w. Compression hose for varicose veins. Discussed TDap. Considering IUD PP vs tubal ligation. F/u 2w. CM Jul 10 2021: 26/1w. GTT done today. Feeling well. Occasional crampiness. Increase PO hydration. Discussed compression hose for varicose veins. Discusssed TDap. F/u 4w. CM Jun 10 2021: Comp u/s today. Declines genetic and carrier testing. LMT Jun 10 2021: Declines aneuploidy or carrier screening today. Anatomy scan wnl, EFW 58th%, posterior placenta. MALE. Sawyer Breaux, PTL precautions reviewed. May 13 2021: NOB TELEHEALTH VISIT, 20 MINUTE DURATION. Fany is 25 year old with an ALISSON of 10/15/2021, current GA is 17 w 6 d. She resides with her , Alison, and their young children, ages 1 and 2. Both of her children were delivered vaginally; past history updated. Delivery at [facility] is planned, she prefers not to have an epidural, and she will breastfeed, at least initially. She had Bel May 05 2021: NEW 16/5w FINAL ALISSON 10/15/21 by 16w US FINAL. PNP done, wnl. F/u 4w Anatomy & PNV. CM Apr 28 2021: Fany is here today for missed menses. LMP-01/14/21 regular and monthly. UPT-positive in office, approx 14 weeks and 6 days. , States that she did not have any complications in last but did experience bells palsy in last two weeks of . Currently taking , no change in medical or surgical hx. Educational packet given, instructed to avoid NSAID's. No questions or bob REVIEW OF SYSTEMS: GENERAL - Denies fever, or chills SKIN - Denies rash, new skin lesions, or change in moles EYES - Denies blurred vision, or change in visual acuity EARS - Denies ear pain, or difficulty hearing NOSE - Denies nasal congestion, discharge, or bleeding MOUTH - Denies sore throat, or difficulty swallowing NECK - Denies pain or swelling RESPIRATORY - Denies shortness of breath, cough, wheezing CARDIOVASCULAR - Denies palpitations, chest pain, orthopnea, PND, peripheral edema, syncope or claudication GASTROINTESTINAL - Denies nausea, vomiting, diarrhea, constipation, Denies abdominal pain, melena and or bright red blood GENITOURINARY - Denies dysuria, frequency of urination, urgency, or hesitancy MUSCULOSKELETAL - Denies joint or muscle pain, or back pain NEUROLOGICAL - Denies localized numbness, weakness, or tingling PSYCHIATRIC - Denies depression, anxiety, substance abuse or suicide attempts ENDOCRINE - Denies heat or cold intolerance, weight loss or gain, increasing thirst HEMATO-IMMUNOLOGIC - Denies easy bruising, bleeding, oral ulcerations or recurrent infections GENETICS SCREENING: Age 35+ years: No Thalassemia: No Neural Tube Defect: No Down Syndrome: No BELINDA-SACHS: No Sickle Cell Disease: No Hemophilia: No Musc. Dystrophy: No Cystic Fibrosis: No-declines screening Ector Chorea: No Mental Retardation: No Fragile X: No Other genetic: No Other defects: No SABs/still births: No Drugs since LMP: No INFECTION HISTORY: High risk AIDS: No High risk Hepatitis: No Exposed to TB: No Exposed to Herpes: No Rash/viral illness since LMP: No History of STD: No MENSTRUAL HISTORY: *Menses Amount/Duration: 5 daysMenses Regularity: RegularFrequency: monthlyMenarche (Age Onset): 13* PAST SUMMARY: PARITY: 1. Total Pregnancies............ 3 2. Full Term Pregnancies........ 2 3. Premature.................... 0 4. Abortions - Induced.......... 0 5. Abortions - Spontaneous...... 0 6. Ectopics..................... 0 7. Multiple Births.............. 0 8. Living Children.............. 2 PAST #1: Date of :.................. 04/24/18 Gestation Weeks:................ 42 Length of labor(hours):......... 12 Sex:............................ M Weight-lbs:............... 6 Weight-oz:................ 15 Type of Delivery:............... Vag Type of Anesthesia:............. Local Place of Delivery:.............. [place] Treatment of Labor?:.... No Comment: SROM, PIT PAST #2: Date of :.................. 04/25/20 Gestation Weeks:................ 39 Length of labor(hours):......... 5 Sex:............................ F Weight-lbs:............... 8 Weight-oz:................ 8 Type of Delivery:............... Vag Type of Anesthesia:............. Local Place of Delivery:.............. [place] Treatment of Labor?:.... No Comment: PHYSICAL EXAMINATION General Appearence: 25 yo female in no acute distress Vital Signs: AF, VSS Heart: RRR without rubs or gallops Lungs: CTA x 2 Breasts: deferred Abdomen: gravid Pelvis: Cervix: Presentation: cephalic Station: Fetus: Size: AGA Movement: present Heart: present LAB TEST(S) ORDERED SINCE:01/18/21 01/30/2021 PAP I-G W/RFX HRHPV-APTIMA 10/01/2021 RULE OUT BETA STREP (GRP. B) 07/10/2021 GLUCOSE CHALLENGE GEST 1H 50G 07/10/2021 CBC-COMPLETE BLOOD CNT NO DIFF 04/30/2021 CHLAMYDIA/GC ARCADIO APTIMA 04/29/2021 URINE CULTURE 04/28/2021 RUBELLA IGG 04/28/2021 T AND S-NO CHARGE W/PNP 04/28/2021 L509.8000 04/28/2021 HIV - [facility] 04/28/2021 HEPATITIS C ANTIBODY 04/28/2021 HEPATITIS B SURFACE ANTIGEN 04/28/2021 CBC W/DIFF, AUTOMATED == ==== Order Observation Description Value Ref_Range A* Site == ==== RULE OUT BETA S NOTE [facility] GLUCOSE CHALLEN NOTE [facility] GLUCOSE CHALLEN GLU GEST 50G 1H 108 mg/dL 70-140 ML CBC-COMPLETE BL NOTE [facility] CBC-COMPLETE BL WBC 9.0 K/mm3 4.4-11.0 ML CBC-COMPLETE BL RBC 3.86 M/mm3 4.2-5.4 L ML CBC-COMPLETE BL HGB 12.4 g/dL 12.0-15.0 ML CBC-COMPLETE BL HCT 35.8 37-47 L ML CBC-COMPLETE BL MCV 92.7 fL 81-99 ML CBC-COMPLETE BL MCH 32.1 pg 27.0-32.0 H ML CBC-COMPLETE BL MCHC 34.6 g/dL 32-36 ML CBC-COMPLETE BL RDW CV 14.6 11.6-14.6 ML CBC-COMPLETE BL RDW SD 49.9 fl 35.1-43.9 H ML CBC-COMPLETE BL PLT 182 K/mm3 150-450 ML CBC-COMPLETE BL MPV 10.4 fl 6.2-12.0 ML CHLAMYDIA/GC NA NOTE [facility] CHLAMYDIA/GC NA CHLAMY,NUC ACID Negative Negative LCI CHLAMYDIA/GC NA GC BY NUC ACID Negative Negative LCI Performed at: = - [facility] [place], [place] [id number] Family And Divorce Legal Assistant: Genevieve Tee MD, Phone: [phone] URINE CULTURE NOTE [facility] HEPATITIS C ANT NOTE [facility] HEPATITIS C ANT HEPATITIS C AB Non-Reactive Nonreactive ML Non Reactive: < 0.8 Equivocal: >/= 0.8 to < 1.0 Reactive: >/= 1.0 The CDC recommends that a reactive/equivocal HCV antibody result be followed up by the HCV Nucleic Acid Amplification test (540117) HEPATITIS B SHAWN NOTE [facility] HEPATITIS B SHAWN HEP B SURF AG Non-Reactive Nonreactive ML HIV - WC NOTE [facility] HIV - [facility] HIV Non-Reactive Nonreactive ML L509.8000 NOTE [facility] L509.8000 SYPHILIS ABS Non-reactive ML RUBELLA IGG NOTE [facility] RUBELLA IGG RUBELLA IGG Reactive Nonreactive ML Antibody Results Interpretation of Immune Status Non Reactive Presumed Non-Immune Equivocal Equivocal Reactive Presumed Immune PN N [facility]~[address] [place], [address]~ T AND AB SCREEN GEL NEGATIVE ML CBC W/DIFF, AUT NOTE [facility] CBC W/DIFF, AUT WBC 6.3 K/mm3 4.4-11.0 ML CBC W/DIFF, AUT RBC 4.33 M/mm3 4.2-5.4 ML CBC W/DIFF, AUT HGB 13.3 g/dL 12.0-15.0 ML CBC W/DIFF, AUT HCT 38.2 37-47 ML CBC W/DIFF, AUT MCV 88.2 fL 81-99 ML CBC W/DIFF, AUT MCH 30.7 pg 27.0-32.0 ML CBC W/DIFF, AUT MCHC 34.8 g/dL 32-36 ML CBC W/DIFF, AUT RDW CV 13.7 11.6-14.6 ML CBC W/DIFF, AUT RDW SD 44.2 fl 35.1-43.9 H ML CBC W/DIFF, AUT PLT 173 K/mm3 150-450 ML CBC W/DIFF, AUT MPV 10.3 fl 6.2-12.0 ML CBC W/DIFF, AUT NEUT% 58.8 47-70 ML CBC W/DIFF, AUT LY% 33.7 19-41 ML CBC W/DIFF, AUT MONO% 5.9 0-10 ML CBC W/DIFF, AUT EO% 1.1 0-5 ML CBC W/DIFF, AUT BASO% 0.2 0-1 ML CBC W/DIFF, AUT IG% 0.300 0.0-0.9 ML IG% - Immature Granulocytes (promyelocytes, myelocytes and metamyelocytes) > 1% indicates that a LEFT SHIFT is Present. CBC W/DIFF, AUT ABSOLUTE NEUT 3.7 X10 3/uL 2.0-7.7 ML CBC W/DIFF, AUT ABSOLUTE LYMPH 2.11 X10 3/uL 0.83-4.51 ML CBC W/DIFF, AUT NUCLEATED RBC 0 0-5 ML PAP I-G W/RFX H NOTE [facility] PAP I-G W/RFX H DIAG Comment . [facility] NEGATIVE FOR INTRAEPITHELIAL LESION OR MALIGNANCY. PAP I-G W/RFX H ADEQ Comment . [facility] Satisfactory for evaluation. Endocervical and/or squamous metaplastic cells (endocervical component) are present. PAP I-G W/RFX H PERFORM Comment . [facility], Drafter (ASCP) This liquid based ThinPrep(R) pap test was screened with the use of an image guided system. PAP I-G W/RFX H COMM . . [facility] PAP I-G W/RFX H PAPSMR Comment . LCI The Pap smear is a screening test designed to aid in the detection of premalignant and malignant conditions of the uterine cervix. It is not a diagnostic procedure and should not be used as the sole means of detecting cervical cancer. Both false-positive and false-negative reports do occur. PAP I-G W/RFX H HPV RFLX Comment . LCI The HPV DNA reflex criteria were not met with this specimen result therefore, no HPV testing was performed. Performed at: [address], [place] [id number] Family And Divorce Legal Assistant: Genevieve Tee MD, Phone: [phone] Group B Beta Streptococcus is not isolated. Mixed Gram Positive Organisms [place] Count 11,000-25,000 MIXC Mixed contaminants. Submit a new specimen if indicated. A POSITIVE == ==== Impression /Plan: 39 week intrauterine with breech presentation. Preparations in progress for delivery.
[2021-10-08] VITALS (20 sets, daily range): BP systolic 101–129; BP diastolic 46–74; PULSE 62–91; RESP 15–18; TEMP 35.8–36.4; O2SAT 16–100; BMI 32.7
[2021-10-08 05:12] LABS: Absolute Lymphocyte Count 2.43 X10^3/uL (0.83-4.51); Absolute Neutrophil Count 7.6 X10^3/uL (2.0-7.7); Basophil# 0.02 X10^3/uL; Basophil% 0.2 % (0-1); Eosinophil# 0.08 X10^3/uL; Eosinophils% 0.7 % (0-5); Hematocrit 37.8 % (37-47); Hemoglobin 12.6 g/dL (12.0-15.0); Lymphocyte # 2.43 X10^3/ul (0.83-4.51); Lymphocyte % 22.5 % (19-41); Mean Corp Hgb Conc 33.3 g/dL (32-36); Mean Corpuscular Hgb 31.4 pg (27.0-32.0); Mean Corpuscular Volume 94.3 fL (81-99); Mean Platelet Vol. 10.6 fl (6.2-12.0); Monocyte# 0.63 X10^3/uL; Monocyte% 5.8 % (0-10); NRBC Flagged by Analyzer 0 % (0-5); Neutrophil # 7.57 X10^3/uL (2.7-7.7); Neutrophil % 70.1 % (47-70); Platelet Count 146 K/mm3 (150-450); RBC Distribution Width CV 13.7 % (11.6-14.6); RBC Distribution Width SD 47.1 fl (35.1-43.9); Red Blood Count 4.01 M/mm3 (4.2-5.4); White Blood Count 10.8 K/mm3 (4.4-11.0)
[2021-10-08] MEDS: Lactated Ringers 1,000 ML 999 ML IV (05:26)
[2021-10-08] MEDS: Acetaminophen 500 MG Tablet 1000 MG PO ×4 (05:27→23:36)
[2021-10-08] MEDS: Lactated Ringers 1,000 ML 150 ML IV (06:05)
[2021-10-08] MEDS: Sodium Citrate/Citric Acid 30 ML UDC PO (06:25)
[2021-10-08] MEDS: Cefazolin 2 GM in 0.9% Normal Saline 100 ML IV (06:47)
--- NOTE | 2021-10-08 07:50 | OP.PCM_ITS ---
Details Operative Information Date of Procedure: 10/08/21 Pre-Operative Diagnosis: Breech Presentation Post-Operative Diagnosis: Breech Presentation Indications for : Breech Classification: Scheduled Procedure Type: low transverse purchasing analyst #1: Janet Oh Type of Anesthesia: Spinal (With Duramorph) Anesthesiologist: Dat Rodriguez Antibiotic Given: Ancef 2 grams IV x1 Drain: Orr to straight drain Estimated Blood Loss: 500 cc Fluids Replaced: Crystalloid Findings Description of Procedure: Surgeon: Farzad Burrell MD, FACOG Procedure: Primary low Transverse Cervical Caesarean Section Findings: Viable male with Apgars of 8/9 in luz maria breech presentation with clear amniotic fluid and normal three-vessel placenta. Indication: This is a 25-year-old G3, P2 who presents for her first at 39+ weeks gestation for primary section for breech presentation. Patient was offered version but declined in favor proceeding with surgery. care has otherwise been uneventful. The patient has been counseled regarding the risk and indications of this procedure including the possibility of bleeding infection and injury to surrounding structures such as bowel bladder. All questions were answered. Procedure: Patient was taken to the operating room where after spinal anesthesia was placed, the patient was prepped and draped in usual sterile fashion and a Orr catheter was placed. The abdomen was entered through a Pfannenstiel incision and peritoneum was entered bluntly. After developing a bladder flap on the lower uterine segment a low transverse incision was made on the uterus and breech was easily delivered onto the operative field. Subsequently a viable male was born with Apgars of 8/9 and the nose mouth and oropharynx were bulb suctioned. The was noted to cry move all extremities vigorously on the operative field. The umbilical cord was doubly clamped and ligated and infant handed to the nursery personnel who were present for the delivery. Placenta was delivered and noted to be 3 vessels and normal although it was somewhat adherent and needed to be removed with ring forceps. Uterus was exteriorized and remaining placental tissue was removed. The uterus was then closed in 2 layers first with running locked 0 Vicryl suture followed by a second imbricating layer with 0 Vicryl suture. 0 Vicryl suture was then used in a horizontal mattress interrupted fashion to affect final hemostasis of the uterine incision line. Normal fallopian tubes and ovaries were visualized and the uterus was returned to the pelvis. Hemostasis was noted and rectus abdominis muscles were reapproximated in the midline with interrupted Number 0 Vicryl suture in a horizontal mattress fashion. Fascia was closed with running Number 1 PDS Strata fix suture. Subcutaneous tissue was irrigated with copious amounts of saline solution and then closed with running 3-0 Vicryl suture. Skin was closed with 4-0 monocryl suture in a running subcuticular fashion. Steri strips and a Mepilex dressing were placed across the incision. The patient tolerated the procedure well and was taken to the recovery room in satisfactory condition. Sponge, needle, and instrument counts were all reportedly correct. EBL was less than 500 cc. Ancef 2 gms IV was given prior to the procedure. Spicemen to Pathology: None Complications: None Presentation: Positive for Luz Maria Breech Amniotic Fluid Description: Clear Placental Delivery Description: Manual Removal Placenta Disposition: [facility] Specimen(s) Sent to Pathology: None Cord Vessel Description: 3 Vessels Cord Entanglement: None Infant A Gender: Male (1 minute): 8 (5 minute): 9 Complications Risks of Surgery Discussed w/Patient: Bleeding, Infection and Injury to surrounding structure(s) including bowel and bladder Complications: None
[2021-10-08] MEDS: Ketorolac 30 MG/ML Syringe IV ×3 (09:03→20:28)
[2021-10-08] MEDS: Oxytocin 30 units/NS 500 ml 30 UNITS/500 ML IV.SOLN 167 UNITS IV (09:04)
[2021-10-08] MEDS: Lactated Ringers 1,000 ML 100 ML IV (11:29)
[2021-10-08] MEDS: Cefazolin 1 GM/50 ML BAG IV ×2 (14:47→23:37)
[2021-10-08] MEDS: Senna/Docusate Sodium 1 Tablet PO (14:47)
[2021-10-08] MEDS: 0.9% Saline Lock 10 ML Syringe IV ×2 (20:28→23:37)
[2021-10-09] MEDS: Ketorolac 30 MG/ML Syringe IV (02:46)
[2021-10-09] MEDS: 0.9% Saline Lock 10 ML Syringe IV (02:46)
[2021-10-09 03:50] VITALS: BP 108/57; PULSE 58; RESP 16; TEMP 36.3; O2SAT 97
[2021-10-09] MEDS: Acetaminophen 500 MG Tablet 1000 MG PO ×4 (05:50→23:58)
[2021-10-09 06:14] LABS: Hemoglobin 11.4 g/dL (12.0-15.0); Mean Corp Hgb Conc 32.6 g/dL (32-36); Mean Corpuscular Hgb 31.6 pg (27.0-32.0); Mean Platelet Vol. 10.8 fl (6.2-12.0); Platelet Count 120 K/mm3 (150-450); RBC Distribution Width CV 13.9 % (11.6-14.6); RBC Distribution Width SD 49.4 fl (35.1-43.9); Red Blood Count 3.61 M/mm3 (4.2-5.4); White Blood Count 11.8 K/mm3 (4.4-11.0)
[2021-10-09 07:49] VITALS: BP 116/49; PULSE 64; RESP 16; TEMP 36.4; O2SAT 98
--- NOTE | 2021-10-09 08:55 | PCM.PN.OB ---
Subjective Subjective No issues overnight. Passing flatus, no bowel movement yet. Voiding without difficulty. Tolerates PO. Denies heavy lochia. Pain well controlled. She is . Objective Data Objective Data Vital Signs: Vital Signs Temp Pulse Resp BP Pulse Ox O2 Del Method 97.5 F L 64 16 116/49 L 98 Room Air 10/09/21 07:49 10/09/21 07:49 10/09/21 07:49 10/09/21 07:49 10/09/21 07:49 10/09/21 07:49 Oxygen Delivery Method Room Air Weight: 97.636 kg Body Mass Index (BMI) 32.7 Intake & Output: Intake and Output for Last 24 Hours 10/07/21 10/08/21 10/09/21 23:59 23:59 23:59 Intake Total 4156.67 / 4156.67 Output Total 1625 / 1625 Balance 2531.67 / 2531.67 Lab / Micro Data Result Diagrams: 10/09/21 05:55 Labs: Laboratory Results - last 24 hr 10/09/21 05:55: WBC 11.8 H, RBC 3.61 L, Hgb 11.4 L, Hct 35.0 L, MCV 97.0, MCH 31.6, MCHC 32.6, RDW Std Deviation 49.4 H, RDW Coeff of [place]hel[place] 13.9, Plt Count 120 L, MPV 10.8 Micro: Microbiology 10/08/21 05:01 Nasal Secretion SARS-CoV-2 Antigen (Rapid) - Final Physical Exam Const alert, oriented x3 and no apparent distress Resp normal respiratory effort, normal air movement and clear to auscultation bilaterally Cardio regular rate, regular rhythm, S1 normal heart sound and S2 normal heart sound GI normal to inspection, nondistended, normoactive bowel sounds, soft to palpation, non-tender and non-distended Manual OB Exam: other lochia scant Uterus Palpation: uterus fundus firm Extremity no calf tenderness Assessment & Plan (1) delivery delivered: PLAN: Rubella immune, RPR nr, HIV nr, HBsAg neg, HCV Ab negative, A positive Routine postop care Plan for d/c home tomorrow
[2021-10-09] MEDS: Ibuprofen 600 MG Tablet PO ×3 (09:07→20:47)
[2021-10-09] MEDS: Senna/Docusate Sodium 1 Tablet PO (09:07)
[2021-10-09 14:05] VITALS: BP 113/54; PULSE 80; RESP 16; TEMP 36.6; O2SAT 97
[2021-10-09 20:54] VITALS: BP 118/58; PULSE 62; RESP 16; TEMP 36.8; O2SAT 97
[2021-10-10 02:23] VITALS: BP 115/68; PULSE 68; RESP 16; TEMP 36.7; O2SAT 97
[2021-10-10] MEDS: Ibuprofen 600 MG Tablet PO ×2 (03:17→09:17)
[2021-10-10] MEDS: Acetaminophen 500 MG Tablet 1000 MG PO (05:50)
--- NOTE | 2021-10-10 07:08 | DS.PCM_ITS ---
Providers Date of Admission: 10/08/21 Date of Discharge: 10/10/21 Reason For Visit: PRIMARY C SECTION Diagnosis Discharge Diagnosis (1) delivery delivered: Status: Acute Code(s): O82 - Encounter for delivery without indication Plan: Rubella immune, RPR nr, HIV nr, HBsAg neg, HCV Ab negative, A positive Routine postop care d/c home Medications at Discharge Home Medications vits,calcium no.78-iron fumarate-folic acid 29 mg-1 mg tablet (Prenatabs FA) 1 tab PO DAILY 04/23/18 omega 0-orl-fdg-fish oil 900 mg-1,400 mg capsule,delayed release 1 ea PO DAILY Check with primary doctor 04/25/20 ibuprofen 600 mg tablet 600 mg PO Q8H PRN PRN pain #30 tabs 10/10/21 oxycodone 5 mg tablet 5 mg PO Q6H PRN PRN Pain Score 4-10 5 days #20 tabs 10/10/21 Hospital Course Operations section Procedures None Summary of Care Provided Hospital Course: 25yo admitted at 39 weeks gestation for scheduled primary section for breech presentation. The section was uncomplicated. Her postop course was unremarkable. She was out of bed, ambulating, passing fla tus, tolerating PO and without difficulty on postop day #2 and discharged to home. Physical Exam Const alert, oriented x3 and no apparent distress Resp normal respiratory effort and normal air movement Cardio regular rate, regular rhythm, S1 normal heart sound and S2 normal heart sound GI normal to inspection, nondistended, normoactive bowel sounds, soft to palpation, non-tender and non-distended GI Narrative: incisional dressing c/d/i Manual OB Exam: other lochia scant Uterus Palpation: uterus fundus firm Extremity no calf tenderness Weight / BMI Weight Weight: 97.636 kg Body Mass Index (BMI) 32.7 ABG / Lab / Microbiology Data Result Diagrams: 10/09/21 05:55 Microbiology: Microbiology 10/08/21 05:01 Nasal Secretion SARS-CoV-2 Antigen (Rapid) - Final D/C Instructions Discharge Diet: No restrictions Discharge Activity: May Shower May resume sexual activity in: 4-6 weeks Lifting Restricted to (Lbs): 10 Call your doctor if your incision/area has: Continuous Slow Oozing, Sudden Increased Bleeding, Increased Pain/ Swelling, Increased Redness, Foul Smelling Discharge and Swelling at the incision site Call your doctor if you observe: Fever of 101 or Higher, Inability to have a bowel movement, Using more than 1 pad per hour, Shortness of breath, Chest pain, Calf discomfort, Uncontrolled pain and - (Persistent or severe headache) Suture Line Care: Avoid Pulling/Pushing Remove Dressing in: 2 days Cleanse incision/area with: Soap & Water Please Follow Up With: Skylar Guerrier DO When: 2 weeks for incision check 6 weeks for visit Meaningful Use Info Meaningful Use Diagnoses (Choose all that apply): None applicable Discharge Plan Admission Admit Date/Time: 10/08/21 04:30 Primary Reason for Your Visit: delivery Attending Provider: Farzad Burrell Discharge Orders/Prescriptions Prescriptions: New ibuprofen 600 mg Tablet 600 mg PO Q8H PRN PRN (Reason: pain) Qty: 30 0RF oxycodone 5 mg Tablet 5 mg PO Q6H PRN PRN (Reason: Pain Score 4-10) 5 Days Qty: 20 0RF Continued Prenatabs FA 1 TABLET tablet 1 tab PO DAILY omega 4-mjo-sdi-fish oil 1 EACH capsule,delayed release(DR/EC) 1 ea PO DAILY Disposition Disposition (needs filled in before D/C Order can be placed): Home, Self Care
--- NOTE | 2021-10-10 07:34 | DCINST_ITS ---
Discharge Instructions Diet Discharge Diet: No restrictions Activity Discharge Activity: Return to Normal Activity, May Shower and May Take a Tub Bath (in 2 weeks) May resume sexual activity in: 4-6 weeks Lifting Restrictions: 10 lb Dressing / Incision Call your doctor if your incision/area has: Continuous Slow Oozing, Sudden Increased Bleeding, Increased Pain/ Swelling, Increased Redness, Foul Smelling Discharge and Swelling at the incision site Call your doctor if you observe: Fever of 101 or Higher, Inability to have a bowel movement, Using more than 1 pad per hour, Shortness of breath, Chest pain, Calf discomfort, Uncontrolled pain and - (Persistent or severe headache) Suture Line Care: Avoid Pulling/Pushing Remove Dressing in: 2 days Cleanse incision/area with: Soap & Water Follow Up Care Please Follow Up With: Skylar Guerrier DO When: 2 weeks for incision check 6 weeks for visit Test Results: Test results from this visit will be discussed in further detail at your follow- up appointment, if applicable. Discharge Plan Admission Admit Date/Time: 10/08/21 04:30 Primary Reason for Your Visit: delivery Attending Provider: Farzad Burrell Discharge Orders/Prescriptions Prescriptions: New ibuprofen 600 mg Tablet 600 mg PO Q8H PRN PRN (Reason: pain) Qty: 30 0RF oxycodone 5 mg Tablet 5 mg PO Q6H PRN PRN (Reason: Pain Score 4-10) 5 Days Qty: 20 0RF Continued Prenatabs FA 1 TABLET tablet 1 tab PO DAILY omega 6-swa-eqo-fish oil 1 EACH capsule,delayed release(DR/EC) 1 ea PO DAILY Disposition Disposition (needs filled in before D/C Order can be placed): Home, Self Care
[2021-10-10 09:04] VITALS: BP 109/73; PULSE 93; RESP 16; TEMP 36.5; O2SAT 98
[2021-10-10] MEDS: Senna/Docusate Sodium 1 Tablet PO (09:17)
[2021-10-10] MEDS: oxyCODONE 5 MG Tablet PO (10:30)
--- NOTE | 2021-10-14 15:49 | NURSING ---
follow up phone call complete. Mother and baby are doing well. No questions or concerns at this time
== END 2021-10-10 10:55 | disposition home or self-care (01) | DRG 788 ==
PROVIDERS: Admitting Provider Obstetrics & Gynecology; Referring Provider Obstetrics & Gynecology; Visit Provider Obstetrics & Gynecology
PROC: 10D00Z1 Extraction of Products of Conception, Low, Open Approach (ICD-10-PCS; CPT 59514; principal; 2021-10-08 06:45)
DX: O32.1XX0 Maternal care for breech presentation, not applicable or unspecified (principal); Z37.0 Single live birth; Z3A.39 39 weeks gestation of pregnancy
CPT/HCPCS: 59025; 85025; 85027; 86850; 86900; 86901; 87426; 99218; J7120; A4216; G0378; J2405